=== PATIENT | female | born 1950 | race Caucasian/White ===

== ENCOUNTER 2022-06-20 14:28 | Emergency (ER) | payer MEDICARE ==
[~2022-06-20] VITALS: Ht 162.6 cm; Wt 100.0 kg
[2022-06-20 14:57] VITALS: BP 155/86
[2022-06-20] MEDS ORDERED: HYDROcodone/acetaminophen 5mg/325mg tablet PO ONE (15:50)
[2022-06-20] MEDS ORDERED: HYDR-3965 PO (15:57)
== END 2022-06-20 16:16 | disposition home or self-care (01) ==
LOC: ER 14:28
DX: M25.562 Pain in left knee (principal); Z79.899 Other long term (current) drug therapy
CPT/HCPCS: 99283